=== PATIENT | female | born 1995 | race Caucasian/White ===

== ENCOUNTER 2024-08-04 22:09 | Emergency (ER) | payer SELFPAY ==
[2024-08-04 23:09] VITALS: O2SAT 4
[2024-08-05] MEDS: ACETAMINOPHEN 325 MG TABLET PO ONE (02:35)
[2024-08-05] MEDS: IBUPROFEN 400 MG TABLET PO ONE (02:35)
== END 2024-08-05 03:05 | disposition home or self-care (01) ==
LOC: EMS 22:12
DX: S93.402A Sprain of unspecified ligament of left ankle, initial encounter (principal); X50.1XXA Overexertion from prolonged static or awkward postures, initial encounter; Y93.01 Activity, walking, marching and hiking; Y92.89 Other specified places as the place of occurrence of the external cause; Y99.8 Other external cause status
CPT/HCPCS: 99283